=== PATIENT | male | born 1995 | race Caucasian/White ===

== ENCOUNTER 2018-12-24 18:06 | Emergency (ER) | payer SELFPAY ==
[~2018-12-24] VITALS: Ht 172.7 cm; Wt 63.2 kg
[2018-12-24 18:10] VITALS: BP 119/68
[2018-12-24] MEDS ORDERED: MORPHINE SULFATE 4 MG/ML SYR IM ONE (20:35)
[2018-12-24 21:33] VITALS: BP 121/63
== END 2018-12-24 21:34 | disposition home or self-care (01) ==
LOC: MED 18:06
DX: S20.20XA Contusion of thorax, unspecified, initial encounter (principal); J45.909 Unspecified asthma, uncomplicated; W01.0XXA Fall on same level from slipping, tripping and stumbling without subsequent striking against object, initial encounter; Y93.89 Activity, other specified; Y92.89 Other specified places as the place of occurrence of the external cause; Y99.8 Other external cause status
CPT/HCPCS: 71101; 96372; 99283; J2270

== ENCOUNTER 2024-03-13 17:48 | Emergency (ER) | payer OTHER ==
[~2024-03-13] VITALS: Ht 175.3 cm; Wt 81.6 kg
[~2024-03-13 17:48] MED LIST: MONT-72 PO; PANT40EC56 PO; PRON INH
[2024-03-13 17:58] VITALS: BP 137/90; PULSE 116; RESP 25; TEMP 98.3; O2SAT 99
[2024-03-13] MEDS: ALBUTEROL 0.083% 2.5 MG/3 ML NEBU INH ONE ×2 (18:12→18:15)
[2024-03-13] MEDS: predniSONE 20 MG TAB PO ONE (18:12)
[2024-03-13] MEDS: IPRATROPIUM 0.02% 0.5 MG/2.5 ML NEBU INH ONE (18:12)
[2024-03-13] MEDS ORDERED: ATA25 PO (18:14)
[2024-03-13] MEDS ORDERED: ALBU0.0912 INH (18:14)
[2024-03-13] MEDS ORDERED: PRED20TA5 PO (18:14)
[2024-03-13] MEDS: LORazepam 1 MG TAB PO ONE (18:15)
[2024-03-13 19:22] VITALS: BP 137/90; PULSE 116; RESP 25; TEMP 98.3; O2SAT 100
== END 2024-03-13 19:19 | disposition home or self-care (01) ==
LOC: MED 17:48
DX: J45.901 Unspecified asthma with (acute) exacerbation (principal); Z79.899 Other long term (current) drug therapy
CPT/HCPCS: 94640; 99284; J7512; J7613; J7644

== ENCOUNTER 2024-09-13 21:43 | Emergency (ER) | payer OTHER ==
[~2024-09-13] VITALS: Ht 175.3 cm; Wt 83.9 kg
[~2024-09-13 21:43] MED LIST changes: +ALBU0.0912 INH; +ATA25 PO; +PRED20TA5 PO
[2024-09-13 21:57] VITALS: BP 127/82; PULSE 88; RESP 20; TEMP 98.6; O2SAT 99
[2024-09-13 22:37] LABS: FLU A ANTIGEN negative (NEGATIVE); FLU B ANTIGEN NEGATIVE (NEGATIVE)
[2024-09-13] MEDS: PROMETH/CODEINE 6.25-10MG/5ML 5 ML UDC PO ONE (22:55)
[2024-09-13] MEDS: DEXAMETHASONE 10 MG/ML VIAL IM ONE (22:56)
[2024-09-13 23:11] VITALS: PULSE 73; RESP 20; O2SAT 97
[2024-09-13] MEDS: ALBUTEROL SULFATE/IPRATROPIU 3 ML SOL IH ONE (23:11)
[2024-09-13] MEDS ORDERED: PRON INH (23:35)
[2024-09-13] MEDS ORDERED: PRED20TA5 PO (23:35)
[2024-09-13] MEDS ORDERED: ONDA-188 PO (23:35)
[2024-09-13] MEDS ORDERED: ROBAC PO (23:35)
[2024-09-13] MEDS ORDERED: IMO2 PO (23:35)
== END 2024-09-13 23:53 | disposition home or self-care (01) ==
LOC: MED 21:43
DX: B34.9 Viral infection, unspecified (principal); R03.0 Elevated blood-pressure reading, without diagnosis of hypertension; Z20.822 Contact with and (suspected) exposure to COVID-19; J45.909 Unspecified asthma, uncomplicated; Z79.899 Other long term (current) drug therapy
CPT/HCPCS: 71045; 87426; 87804; 94640; 96372; 99285; J1100; Q0092